=== PATIENT | female | born 1960 | race Caucasian/White ===

== ENCOUNTER → 2020-02-14 | Outpatient (CLI) | payer BC | END | disposition home or self-care (01) | LOC: LABWHC1 10:22 | PROVIDERS: ATTEND Family Medicine | DX: Z20.828 Contact with and (suspected) exposure to other viral communicable diseases (principal) | CPT/HCPCS: U0003; C9803 ==

== ENCOUNTER → 2021-03-10 | Outpatient (CLI) | payer BC ==
--- NOTE | 2021-03-10 11:08 | US ---
EXAMINATION TYPE: US venous doppler duplex LE LT DATE OF EXAM: 03/10/2021 10:36 AM COMPARISON: NONE CLINICAL HISTORY: Left M79.605 Pain of left leg. Left leg pain after fall from ladder 3 days ago SIDE PERFORMED: Left TECHNIQUE: The lower extremity deep venous system is examined utilizing real time linear array sonog brian with graded compression, doppler sonography and color-flow sonography. VESSELS IMAGED: Common Femoral Vein Deep Femoral Vein Greater Saphenous Vein * Femoral Vein Popliteal Vein Small Saphenous Vein * Proximal Calf Veins (* superficial vessels) Left Leg: Appears negative for DVT IMPRESSION: 1. Left lower extremity ultrasound negative for deep venous thrombosis.
== END | disposition home or self-care (01) ==
LOC: RADUSWWP 10:16
PROVIDERS: ATTEND Family Medicine
DX: M79.605 Pain in left leg (principal)

== ENCOUNTER → 2023-12-08 | Outpatient (CLI) | payer MEDICARE, BC ==
--- NOTE | 2023-12-11 15:06 | MM ---
Reason for Exam: Screening (asymptomatic). Last mammogram was performed 6 year(s) and 8 month(s) ago. Patient History: Menarche at age 10. First Full-Term at age 37. Late child-bearing (after 30). Postmenopausal. Patient has history of breast feeding. Patient used Hormonal Contraceptives for 10 years. Sister had breast cancer, age 58. Risk Values: Rena 5 year model risk: 3.3%. NCI Lifetime model risk: 12.3%. Prior Study Comparison: 10/06/2008 Bilateral Screening Mammogram, [facility]. 12/11/2009 Bilateral Screening Mammogram, [facility]. 04/21/2017 Bilateral Screening Mammogram, [facility]. Tissue Density: The breasts are heterogeneously dense, which may obscure small masses. Findings: Analyzed By CAD. Right breast: There is no suspicious group of microcalcifications or new suspicious mass. Left breast: There is no suspicious group of microcalcifications or new suspicious mass. Overall Assessment: Negative, BI-RAD 1 Management: Screening Mammogram of both breasts in [address] [facility] will attempt to contact patient to return for supplemental views and ultrasound if indicated. Patient should continue monthly self-breast exams. A clinical breast exam by your physician is recommended on an annual basis. This exam should not preclude additional follow-up of suspicious palpable abnormalities. Note on Rena scores and lifetime risk: 1. A Rena score greater than 3% is considered moderate risk. If this is the case, consider specialist referral to assess eligibility for a risk reducing agent. 2. If overall lifetime risk for the development of breast cancer is 20% or higher, the patient may qualify for future screening with alternating mammogram and breast MRI. Electronically signed and approved by: Rajan Jay DO
== END | disposition home or self-care (01) ==
LOC: RADMAMWWP 08:53
PROVIDERS: ATTEND Family Medicine
DX: Z12.31 Encounter for screening mammogram for malignant neoplasm of breast (principal); Z78.0 Asymptomatic menopausal state; Z80.3 Family history of malignant neoplasm of breast
CPT/HCPCS: 77063; 77067

== ENCOUNTER → 2024-12-11 | Outpatient (CLI) | payer MEDICARE ==
--- NOTE | 2024-12-11 10:51 | MR ---
EXAMINATION TYPE: MR brain wo con DATE OF EXAM: 12/11/2024 9:57 AM COMPARISON: None. CLINICAL INDICATION: Female, 64 years old with history of R41.3 memory loss, Memory loss TECHNIQUE: Multiplanar, multisequence images of the brain and brainstem were acquired without IV con trast. Diffusion weighted imaging is performed. FINDINGS: No evidence for acute infarction, hemorrhage, mass, mass effect, midline shift, herniation, effacemen t of basal cisterns, or extra-axial fluid collection. Mild to moderate volume loss overlying the bilateral cerebral convexities. No hydrocephalus. Major intracranial flow voids are intact. Hypoplastic left vertebral artery. Small caliber to the bas ilar artery. There appears to be persistent origin bilateral posterior cerebral arteries. T2/FLAIR weighted sequences show mild to moderate scattered bright signal foci in the subcortical and deep white matter regions of both cerebral hemispheres. Midline structures demonstrate normal morphology. The craniocervical junction is normal. There is mild mucosal thickening ethmoid air cells. Globes are intact. IMPRESSION: 1. No acute intracranial abnormality seen. 2. Mild age-related cerebral atrophy. 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 3. 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 Correlate for any potential hand hide stretcher loan symptoms of vertebrobasilar insufficiency. [facility], , 12/11/2024 10:48 AM
== END | disposition home or self-care (01) ==
LOC: RADMRIMAIN 11-01 11:27
PROVIDERS: ATTEND Psychiatry & Neurology Neurology
DX: I67.82 Cerebral ischemia (principal); G31.1 Senile degeneration of brain, not elsewhere classified; R41.3 Other amnesia
CPT/HCPCS: 70551

== ENCOUNTER → 2025-01-17 | Outpatient (CLI) | payer MEDICARE ==
--- NOTE | 2025-01-17 17:50 | MM ---
Reason for Exam: Screening (asymptomatic). Last mammogram was performed 1 year(s) and 1 month(s) ago. Patient History: Menarche at age 10. First Full-Term at age 37. Late child-bearing (after 30). Postmenopausal. Patient has history of breast feeding. Patient used Hormonal Contraceptives for 10 years. Sister had breast cancer, age 58. Risk Values: Rena 5 year model risk: 3.4%. NCI Lifetime model risk: 11.4%. Prior Study Comparison: 12/11/2009 Bilateral Screening Mammogram, [facility]. 04/21/2017 Bilateral Screening Mammogram, [facility]. 12/08/2023 Bilateral MG 3D screening mammo w/cad, [facility]. Tissue Density: There are scattered areas of fibroglandular density. Findings: Analyzed By CAD. Unchanged bilateral areas of asymmetric density. There is no suspicious group of microcalcifications or new suspicious mass in either breast. Overall Assessment: Benign, BI-RAD 2 Management: Screening Mammogram of both breasts in 1 year. See note below in regards to the patient's increased 5 year Rena score. Patient should continue monthly self-breast exams. A clinical breast exam by your physician is recommended on an annual basis. This exam should not preclude additional follow-up of suspicious palpable abnormalities. Note on Rena scores and lifetime risk: 1. A Rena score greater than 3% is considered moderate risk. If this is the case, consider specialist referral to assess eligibility for a risk reducing agent. 2. If overall lifetime risk for the development of breast cancer is 20% or higher, the patient may qualify for future screening with alternating mammogram and breast MRI. [facility], , 01/17/2025 5:47 PM. Electronically signed and approved by: Geoffrey Ca M.D. Radiologist
== END | disposition home or self-care (01) ==
LOC: RADMAMWWP 09:32
PROVIDERS: ATTEND Family Medicine
DX: Z12.31 Encounter for screening mammogram for malignant neoplasm of breast (principal); R92.323 Mammographic fibroglandular density, bilateral breasts; Z78.0 Asymptomatic menopausal state; Z92.0 Personal history of contraception; Z80.3 Family history of malignant neoplasm of breast
CPT/HCPCS: 77063; 77067

== ENCOUNTER 2025-02-26 11:33 | Inpatient (IN) | payer MEDICARE ==
--- NOTE | 2025-02-26 11:55 | ED ---
Recheck HPI - General Source: patient, RN notes reviewed Mode of arrival: ambulatory Limitations: no limitations - History of Present Illness MD Complaint: abnormal lab <Renee Floyd - Last Filed: 02/26/25 16:48> <Allie Polanco - Last Filed: 02/27/25 20:46> - General Chief Complaint: Recheck/Abnormal Lab/Rx Stated Complaint: Low iron Time Seen by Provider: 02/26/25 11:39 - History of Present Illness Initial Comments: This is a 65-year-old female who presents to the emergency department for low hemoglobin. Patient had been experiencing shortness of breath and weakness over the last month. She had initially thought this was related to her asthma. She had blood work done yesterday revealing a hemoglobin level of less than 7 and she was advised by her PCP to come to the emergency department for a transfusion. Denies any history of low hemoglobin in the past or history of requiring blood transfusions. Not taking any blood thinners. She does report having some dark stools yesterday, but advised that this has otherwise not been a regular recurrence. Denies any blood in her stool or elsewhere. Denies any abdominal pain, nausea, or vomiting. (Renee Floyd) - Related Data Home Medications Medication Instructions Recorded Confirmed Albuterol Sulfate [Albuterol 2 puff INHALATION RT-Q6H PRN 02/26/25 02/26/25 Sulfate Hfa] Budesonide [Pulmicort Flexhaler] 1 puff INHALATION RT-BID 02/26/25 02/26/25 Ginkgo Biloba(Unknown Dose) 1 tab PO DAILY 02/26/25 02/26/25 Allergies Allergy/AdvReac Type Severity Reaction Status Date / Time No Known Allergies Allergy Verified 02/26/25 15:03 Review of Systems ROS Other: All systems not noted in ROS Statement are negative. <Renee Floyd - Last Filed: 02/26/25 16:48> ROS Other: All systems not noted in ROS Statement are negative. <Allie Polanco - Last Filed: 02/27/25 20:46> ROS Statement: Those systems with pertinent positive or pertinent negative responses have been documented in the HPI. Past Medical History Past Medical History: Asthma History of Any Multi-Drug Resistant Organisms: None Reported Past Surgical History: No Surgical Hx Reported Past Psychological History: No Psychological Hx Reported Smoking Status: Never smoker Past Alcohol Use History: Occasional Past Drug Use History: None Reported <Renee Floyd - Last Filed: 02/26/25 16:48> General Exam Limitations: no limitations General appearance: alert, in no apparent distress Head exam: Present: atraumatic, normocephalic, normal inspection Respiratory exam: Present: normal lung sounds bilaterally. Absent: respiratory distress, wheezes, rales, rhonchi, stridor Cardiovascular Exam: Present: regular rate, normal rhythm Neurological exam: Present: alert, oriented X3, CN II-XII intact Psychiatric exam: Present: normal affect, normal mood Skin exam: Present: warm, dry, intact, normal color. Absent: rash <Renee Floyd - Last Filed: 02/26/25 16:48> Course Vital Signs 02/26/25 02/26/25 02/26/25 11:35 12:03 13:20 Temperature 98 F Pulse Rate 85 69 Respiratory 20 18 18 Rate Blood Pressure 134/83 116/65 O2 Sat by Pulse 99 99 Oximetry 02/26/25 02/26/25 02/26/25 13:25 13:42 14:02 Temperature 98.7 F 98.3 F 98.5 F Pulse Rate 81 58 L 76 Respiratory 16 16 16 Rate Blood Pressure 116/65 114/65 108/62 O2 Sat by Pulse 99 99 Oximetry 02/26/25 02/26/25 14:42 15:23 Temperature 98.5 F 98.2 F Pulse Rate 59 L 78 Respiratory 18 19 Rate Blood Pressure 105/62 126/74 O2 Sat by Pulse 97 100 Oximetry Medical Decision Making - Lab Data Result diagrams: 02/26/25 12:03 02/26/25 12:03 <Renee Floyd - Last Filed: 02/26/25 16:48> - Lab Data Result diagrams: 02/27/25 03:39 02/26/25 12:03 <Allie Polanco - Last Filed: 02/27/25 20:46> - Medical Decision Making This is a 65 year old female who presents to the emergency department for low h emoglobin. Was pt. sent in by a medical professional or institution? @ -No Did you speak to anyone other than the patient for history? @ -No Did you review nursing and triage notes? @ -Yes, and I agree, it is accurate with regards to the patient's symptoms. Were old charts reviewed? @ -No Differential Diagnosis? @ -Iron deficiency anemia, medication induced, coagulopathy, bleeding, sepsis, this is not meant to be an all-inclusive list. EKG interpreted by me (3pts min.)? @ -EKG interpreted by me demonstrating the following: Sinus rhythm. Ventricular rate 70 bpm, [place] interval 142 ms, QRS duration 101 ms, QTc 417 ms. X-rays interpreted by me (1pt min.)? @ -Not obtained CT interpreted by me (1pt min.)? @ -Not obtained U/S interpreted by me (1pt. min.)? @ -Not obtained What testing was considered but not performed? (CT, X-rays, U/S, labs)? Why? @ -None What meds were considered but not given? Why? @ -None Did you discuss the management of the patient with other professionals? @ -Yes, Dr. Bautista, who accepts the patient for admission. Did you reconcile home meds? @ -Yes Was smoking cessation discussed for >3mins.? @ -No Was critical care preformed (if so, how long)? @ -No Were there social determinants of health that impacted care today? How? (Homelessness, low income, unemployed, alcoholism, drug addiction, transportation, low edu. Level, literacy, decrease access to med. care, custodial, rehab)? @ -No Was there de-escalation of care discussed even if they declined? (Discuss DNR or withdrawal of care, Hospice)? @ -No What co-morbidities impacted this encounter? (DM, HTN, Smoking, COPD, CAD, Cancer, CVA, Hep., AIDS, mental health diagnosis, sleep apnea, morbid obesity)? @ -Asthma Was patient admitted / discharged? @ -Admitted. Lab work demonstrates anemia with a hemoglobin of 6.9. RBCs, MCV, and MCH are also low, suggesting that she is likely iron deficient. She did have some dark stools yesterday that she advised have since resolved. She has otherwise not had any GI symptoms. 1 unit of PRBCs ordered for transfusion. Given that this is a new problem for the patient and the cause of the anemia is not clear, she was admitted to medicine for further evaluation and management. Iron profile, vitamin B12, and folate ordered with results pending at the time of admission. Consult placed for GI regarding symptomatic anemia. Case discussed with ED attending Dr. Polanco. Undiagnosed new problem with uncertain prognosis? @ -None Drug Therapy requiring intensive monitoring for toxicity (Heparin, Nitro, Insulin, Cardizem)? @ -None Were any procedures done? @ -None Diagnosis/symptom? @ -Symptomatic anemia, anemia of unknown origin Acute, or Chronic, or Acute on Chronic? @ -Acute Uncomplicated (without systemic symptoms) or Complicated (systemic symptoms)? @ -Complicated Side effects of treatment? @ -None Exacerbation, Progression, or Severe Exacerbation] @ -Not applicable Poses a threat to life or bodily function? @ -Yes, if the hemoglobin continues to decrease it can become life-threatening (Renee Floyd) - Lab Data Lab Results 02/26/25 02/26/25 02/26/25 Range/Units 11:56 11:58 12:03 WBC 4.78 (4.50-10.00) 10*3/uL RBC 3.51 L (4.10-5.20) 10*6/uL Hgb 6.9 L* (12.0-15.0) g/dL Hct 23.9 L (37.2-46.3) % MCV 68.1 L (80.0-97.0) fL MCH 19.7 L (27.0-32.0) pg MCHC 28.9 L (32.0-37.0) g/dL Plt Count 338 (140-440) 10*3/uL MPV 9.3 L (9.5-12.2) fL Immature Gran % (Auto) 0.4 % Neutrophils % 62.6 % Lymphocytes % 26.8 % Monocytes % 8.4 % Eosinophils % 0.8 % Basophils % 1.0 % Immature Gran # 0.02 (0.00-0.04) 10*3/uL Neutrophils # 2.99 (1.80-7.70) 10*3/uL Lymphocytes # 1.28 (0.90-5.00) 10*3/uL Monocytes # 0.40 (0.20-1.00) 10*3/uL Eosinophils # 0.04 (0.04-0.35) 10*3/uL Basophils # 0.05 (0.00-0.10) 10*3/uL PT (10.0-12.5) sec INR (<1.2) APTT (22.0-30.0) sec Sodium (137-145) mmol/L Potassium (3.5-5.1) mmol/L Chloride (98-107) mmol/L Carbon Dioxide (22-30) mmol/L Anion Gap mmol/L BUN (7-17) mg/dL Creatinine (0.52-1.04) mg/dL Est GFR (CKD-EPI)AfAm (>60 ml/min/1.73 sqM) Est GFR (CKD-EPI)NonAf (>60 ml/min/1.73 sqM) Glucose (74-99) mg/dL Calcium (8.4-10.2) mg/dL Magnesium (1.6-2.3) mg/dL Iron (50-170) UG/DL TIBC (228-460) UG/DL % Saturation (12.00-45.00) Transferrin (204.0-354.0) mg/dL Ferritin (10.0-291.0) ng/mL Total Bilirubin (0.2-1.3) mg/dL AST (14-36) U/L ALT (4-34) U/L Alkaline Phosphatase (38-126) U/L Total Protein (6.3-8.2) g/dL Albumin (3.5-5.0) g/dL Vitamin B12 (200.0-944.0) pg/mL Folate (4.40-31.00) ng/mL Blood Type B Positive Blood Type Confirm B Positive Blood Type Recheck No Previous Record Bld Type Recheck Status CABO Indicated Antibody Screen NEGATIVE Crossmatch See Detail Spec Expiration Date 03/01/2025 - 235702/26/25 02/26/25 02/26/25 Range/Units 12:03 12:03 12:03 WBC (4.50-10.00) 10*3/uL RBC (4.10-5.20) 10*6/uL Hgb (12.0-15.0) g/dL Hct (37.2-46.3) % MCV (80.0-97.0) fL MCH (27.0-32.0) pg MCHC (32.0-37.0) g/dL Plt Count (140-440) 10*3/uL MPV (9.5-12.2) fL Immature Gran % (Auto) % Neutrophils % % Lymphocytes % % Monocytes % % Eosinophils % % Basophils % % Immature Gran # (0.00-0.04) 10*3/uL Neutrophils # (1.80-7.70) 10*3/uL Lymphocytes # (0.90-5.00) 10*3/uL Monocytes # (0.20-1.00) 10*3/uL Eosinophils # (0.04-0.35) 10*3/uL Basophils # (0.00-0.10) 10*3/uL PT 10.6 (10.0-12.5) sec INR 0.9 (<1.2) APTT 19.9 L (22.0-30.0) sec Sodium 140 (137-145) mmol/L Potassium 4.3 (3.5-5.1) mmol/L Chloride 109 H (98-107) mmol/L Carbon Dioxide 22 (22-30) mmol/L Anion Gap 9 mmol/L BUN 18 H (7-17) mg/dL Creatinine 0.54 (0.52-1.04) mg/dL Est GFR (CKD-EPI)AfAm >90 (>60 ml/min/1.73 sqM) Est GFR (CKD-EPI)NonAf >90 (>60 ml/min/1.73 sqM) Glucose 91 (74-99) mg/dL Calcium 9.2 (8.4-10.2) mg/dL Magnesium 2.0 (1.6-2.3) mg/dL Iron 14 L (50-170) UG/DL TIBC 577 H (228-460) UG/DL % Saturation 2.43 L (12.00-45.00) Transferrin 412.0 H (204.0-354.0) mg/dL Ferritin (10.0-291.0) ng/mL Total Bilirubin 0.7 (0.2-1.3) mg/dL AST 26 (14-36) U/L ALT 21 (4-34) U/L Alkaline Phosphatase 77 (38-126) U/L Total Protein 6.4 (6.3-8.2) g/dL Albumin 4.2 (3.5-5.0) g/dL Vitamin B12 429.0 (200.0-944.0) pg/mL Folate 18.60 (4.40-31.00) ng/mL Blood Type Blood Type Confirm Blood Type Recheck Bld Type Recheck Status Antibody Screen Crossmatch Spec Expiration Date 02/26/25 Range/Units 12:03 WBC (4.50-10.00) 10*3/uL RBC (4.10-5.20) 10*6/uL Hgb (12.0-15.0) g/dL Hct (37.2-46.3) % MCV (80.0-97.0) fL MCH (27.0-32.0) pg MCHC (32.0-37.0) g/dL Plt Count (140-440) 10*3/uL MPV (9.5-12.2) fL Immature Gran % (Auto) % Neutrophils % % Lymphocytes % % Monocytes % % Eosinophils % % Basophils % % Immature Gran # (0.00-0.04) 10*3/uL Neutrophils # (1.80-7.70) 10*3/uL Lymphocytes # (0.90-5.00) 10*3/uL Monocytes # (0.20-1.00) 10*3/uL Eosinophils # (0.04-0.35) 10*3/uL Basophils # (0.00-0.10) 10*3/uL PT (10.0-12.5) sec INR (<1.2) APTT (22.0-30.0) sec Sodium (137-145) mmol/L Potassium (3.5-5.1) mmol/L Chloride (98-107) mmol/L Carbon Dioxide (22-30) mmol/L Anion Gap mmol/L BUN (7-17) mg/dL Creatinine (0.52-1.04) mg/dL Est GFR (CKD-EPI)AfAm (>60 ml/min/1.73 sqM) Est GFR (CKD-EPI)NonAf (>60 ml/min/1.73 sqM) Glucose (74-99) mg/dL Calcium (8.4-10.2) mg/dL Magnesium (1.6-2.3) mg/dL Iron (50-170) UG/DL TIBC (228-460) UG/DL % Saturation (12.00-45.00) Transferrin (204.0-354.0) mg/dL Ferritin 4.9 L (10.0-291.0) ng/mL Total Bilirubin (0.2-1.3) mg/dL AST (14-36) U/L ALT (4-34) U/L Alkaline Phosphatase (38-126) U/L Total Protein (6.3-8.2) g/dL Albumin (3.5-5.0) g/dL Vitamin B12 (200.0-944.0) pg/mL Folate (4.40-31.00) ng/mL Blood Type Blood Type Confirm Blood Type Recheck Bld Type Recheck Status Antibody Screen Crossmatch Spec Expiration Date Disposition <Renee Floyd - Last Filed: 02/26/25 16:48> <Allei Polanco - Last Filed: 02/27/25 20:46> Clinical Impression: Symptomatic anemia, Anemia of unknown etiology Disposition: ADMITTED IP TO THIS HOSP
[2025-02-26 12:14] LABS: Basophils # (A) 0.05 10*3/uL (0.00-0.10); Basophils % (A) 1.0 %; Eosinophils # (A) 0.04 10*3/uL (0.04-0.35); Eosinophils % (A) 0.8 %; HCT 23.9 % (37.2-46.3); Lymphocytes # (A) 1.28 10*3/uL (0.90-5.00); Lymphocytes % (A) 26.8 %; MCH 19.7 pg (27.0-32.0); MCHC 28.9 g/dL (32.0-37.0); MCV 68.1 fL (80.0-97.0); Monocytes # (A) 0.40 10*3/uL (0.20-1.00); Monocytes % (A) 8.4 %; Neutrophils # (A) 2.99 10*3/uL (1.80-7.70); Neutrophils % (A) 62.6 %; Platelet Count 338 10*3/uL (140-440); RBC 3.51 10*6/uL (4.10-5.20); RDW 19.6 % (11.5-14.5); WBC 4.78 10*3/uL (4.50-10.00)
[2025-02-26 12:23] LABS: HGB 6.9 g/dL (12.0-15.0)
[2025-02-26 12:27] LABS: ALT 21 U/L (4-34); AST 26 U/L (14-36); African American GFR (CKD) >90 (>60 ml/min/1.73 sqM); Albumin 4.2 g/dL (3.5-5.0); Alkaline Phosphatase 77 U/L (38-126); Anion Gap 9 mmol/L; Blood Urea Nitrogen 18 mg/dL (7-17); Calcium 9.2 mg/dL (8.4-10.2); Carbon Dioxide 22 mmol/L (22-30); Chloride 109 mmol/L (98-107); Glucose 91 mg/dL (74-99); Magnesium 2.0 mg/dL (1.6-2.3); Non-African American GFR(CKD) >90 (>60 ml/min/1.73 sqM); Potassium 4.3 mmol/L (3.5-5.1); Sodium 140 mmol/L (137-145); Total Protein 6.4 g/dL (6.3-8.2)
[2025-02-26 12:37] LABS: INR 0.9 (<1.2); Prothrombin Time 10.6 sec (10.0-12.5)
[2025-02-26 12:39] LABS: Partial Thromboplastin Time 19.9 sec (22.0-30.0)
[2025-02-26] MEDS ORDERED: NALOXONE 0.4 MG/ML 1 ML VIAL IV PRN (12:43)
[2025-02-26] MEDS ORDERED: HYDROcodone/APAP 5-325MG 1 EACH TAB PO PRN (12:43)
[2025-02-26] MEDS ORDERED: ACETAMINOPHEN TAB 325 MG TAB PO PRN (12:43)
[2025-02-26] MEDS ORDERED: MORPHINE SULFATE 4 MG/ML SYRINGE IV PRN (12:43)
[2025-02-26] MEDS ORDERED: ONDANSETRON 4 MG/2 ML VIAL IVP PRN (12:43)
[2025-02-26] MEDS: PANTOPRAZOLE 40 MG/10 ML VIAL IVP STA (12:48)
[2025-02-26] MEDS ORDERED: ALBUTEROL NEBULIZED 2.5 MG/3 ML INHALATION PRN (15:36)
[2025-02-26 15:44] LABS: Bacteria,Urine Rare /hpf; Bilirubin,Urine Negative (Negative); Blood,Urine Negative (Negative); Color,Urine Colorless; Glucose,Urine (UA) Negative (Negative); Ketones,Urine Trace (Negative); Leukocyte Esterase,Urine Moderate (Negative); Mucus,Urine Rare /hpf; Nitrite,Urine Negative (Negative); PH, Urine 6.5 (5.0-8.0); Protein,Urine Negative (Negative); RBC,Urine 1 /hpf (0-5); Specific Gravity,Urine 1.017 (1.001-1.035); Squamous Epithelial Cell,Urine <1 /hpf (0-4); Urobilinogen,Urine <2.0 mg/dL (<2.0); WBC,Urine 7 /hpf (0-5)
--- NOTE | 2025-02-26 17:51 | HP ---
HISTORY AND PHYSICAL CHIEF COMPLAINT: Shortness of breath and anemia. HISTORY OF PRESENT ILLNESS: This 65-year-old woman with a past medical history of multiple medical problems, recently diagnosed of asthma because of increased shortness of breath. The patient had a blood work done, hemoglobin was less than 7 and the patient was taken to [place] for further evaluation and treatment. There is no history of fever, rigors, chills at this time. PAST MEDICAL HISTORY: History of asthma. Rest of the history and chart is also reviewed. MEDICATIONS: Pulmicort, dose and rest of medications reviewed. ALLERGIES: None. FAMILY HISTORY: No history of heart disease or strokes in the family. SOCIAL HISTORY: Occasional alcohol. REVIEW OF SYSTEMS: 14-point review of systems negative except as mentioned earlier. PHYSICAL EXAMINATION: VITAL SIGNS: Pulse is 63, blood pressure n, respirations 20. HEENT: Conjunctivae pale. Oral mucosa moist. CARDIOVASCULAR: S1, S2. RESPIRATIONS: Breath sounds diminished at the bases. ABDOMEN: Soft, nontender. LEGS: No edema. NERVOUS SYSTEM: Nonfocal. LABORATORY DATA: Hemoglobin 6.9, MCV 68.1. Rest of the labs are noted. ASSESSMENT: 1. Microcytic anemia, rule out gastrointestinal bleed. 2. History of recently diagnosed asthma. RECOMMENDATIONS AND DISCUSSION: This is a 65-year-old woman who presented with multiple complex medical issues. We will monitor the patient closely. Recommend to resume the home medications. Proton pump inhibitors. Gastroenterology consultation for possible endoscopies. The patient had a colonoscopy previously and had EGD. We will continue to monitor. Guarded prognosis. Further recommendations to follow. MMODL / IJN: [id number] / [facility]
[2025-02-26 19:21] LABS: Iron 14 UG/DL (50-170); Total Iron Binding Capacity 577 UG/DL (228-460); Vitamin B12 429.0 pg/mL (200.0-944.0)
[2025-02-26 19:57] LABS: Basophils # (A) 0.07 10*3/uL (0.00-0.10); Basophils % (A) 1.2 %; Eosinophils # (A) 0.06 10*3/uL (0.04-0.35); Eosinophils % (A) 1.1 %; HCT 23.9 % (37.2-46.3); HGB 7.0 g/dL (12.0-15.0); Lymphocytes # (A) 1.63 10*3/uL (0.90-5.00); Lymphocytes % (A) 28.8 %; MCH 20.5 pg (27.0-32.0); MCHC 29.3 g/dL (32.0-37.0); MCV 69.9 fL (80.0-97.0); Monocytes # (A) 0.49 10*3/uL (0.20-1.00); Monocytes % (A) 8.7 %; Neutrophils # (A) 3.39 10*3/uL (1.80-7.70); Neutrophils % (A) 60.0 %; Platelet Count 295 10*3/uL (140-440); RBC 3.42 10*6/uL (4.10-5.20); RDW 19.9 % (11.5-14.5); WBC 5.65 10*3/uL (4.50-10.00)
[2025-02-26] MEDS: FLUTICASONE 110 MCG INHALER INHALATION SCH (22:46)
[2025-02-27 08:43] LABS: Anisocytosis (M) 2+ (None Seen); Basophils # (A) 0.07 X 10*3/uL (0.00-0.10); Basophils % (A) 1.4 %; Eosinophils # (A) 0.11 X 10*3/uL (0.04-0.35); Eosinophils % (A) 2.2 %; HCT 24.5 % (37.2-46.3); HGB 6.8 g/dL (12.0-15.0); Hypochromasia (M) 2+ (None Seen); Immature Grans, Automated 0.40 %; Lymphocytes # (A) 1.82 X 10*3/uL (0.90-5.00); Lymphocytes % (A) 35.7 %; MCH 19.8 pg (27.0-32.0); MCHC 27.8 g/dL (32.0-37.0); MCV 71.4 FL (80.0-97.0); Microcytosis (M) 2+ (None Seen); Monocytes # (A) 0.50 X 10*3/uL (0.20-1.00); Monocytes % (A) 9.8 %; NRBC Per 100 WBC 0 X 10*3/uL (0.00-0.01); Neutrophils # (A) 2.58 X 10*3/uL (1.80-7.70); Neutrophils % (A) 50.5 %; Platelet Count 291 X 10*3/uL (140-440); RBC 3.43 X 10*6/uL (4.10-5.20); RDW 20.5 % (11.5-14.5); WBC 5.10 X 10*3/uL (4.50-10.00)
[2025-02-27] MEDS ORDERED: GINKGO BILOBA PO SCH (09:00)
[2025-02-27] MEDS: PANTOPRAZOLE 40 MG/10 ML VIAL IV SCH (09:33)
--- NOTE | 2025-02-27 17:11 | P.CONS ---
History of Present Illness - Reason for Consult Consult date: 02/27/25 Symptomatic anemia Requesting physician: Renee Floyd - Chief Complaint Shortness of breath, weakness - History of Present Illness 65-year-old female presented to the emergency department yesterday with low hemoglobin. She had been experiencing shortness of breath and weakness for the last months duration went to her PCP had some blood work done found out her hemoglobin was low and was sent to the emergency department for further evaluation. Patient was noted to have a hemoglobin of 6.9. She was transfused 1 unit of blood with a repeat level of 7.0 and repeat peak dropped to 6.8. She received a second unit of blood. Gastroenterology was consulted for symptomatic anemia.. No significant past medical history other than asthma. She denies any previous history of GI bleed. No previous need for transfusion. She denies any anticoagulation, no NSAID use. Denies any abdominal pain nausea or vomiting. No acid reflux. No previous history of upper endoscopy. Last colonoscopy was in [address] Jakob brar which was normal with recommendations for repeat in 10 years. Review of Systems REVIEW OF SYSTEMS: CARDIOPULMONARY: No chest pain. Positive shortness of breath. Gastrointestinal: No abdominal pain. No nausea or vomiting. No hematemesis, coffee-ground emesis. No rectal bleeding, or melena. GENITOURINARY: No dysuria or hematuria. MUSCULOSKELETAL: Reports normal range of motion., Joint pain. SKIN: No rashes. No jaundice. ENDOCRINE: No chills, fevers. No excessive weight gain or loss. No polydipsia or polyuria. PSYCHIATRIC: Unremarkable. NEUROLOGY: No change in mental status. Denies dizziness, headache. ENT: Vision unremarkable. CONSTITUTIONAL: No recent weight loss. No fever, chills, night sweats. Generalized weakness. Past Medical History Past Medical History: Asthma History of Any Multi-Drug Resistant Organisms: None Reported Past Surgical History: No Surgical Hx Reported Past Psychological History: No Psychological Hx Reported Smoking Status: Never smoker Past Alcohol Use History: Occasional Past Drug Use History: None Reported Medications and Allergies Home Medications Medication Instructions Recorded Confirmed Type Albuterol Sulfate [Albuterol 2 puff INHALATION RT-Q6H PRN 02/26/25 02/26/25 History Sulfate Hfa] Budesonide [Pulmicort Flexhaler] 1 puff INHALATION RT-BID 02/26/25 02/26/25 History Ginkgo Biloba(Unknown Dose) 1 tab PO DAILY 02/26/25 02/26/25 History Allergies Allergy/AdvReac Type Severity Reaction Status Date / Time No Known Allergies Allergy Verified 02/26/25 15:03 Physical Exam Vitals: Vital Signs Temp Pulse Pulse Resp BP BP Pulse Ox 02/27/25 11:11 97.4 F L 62 20 121/76 97 02/27/25 10:45 120/68 02/27/25 10:34 98.3 F 73 16 100 02/27/25 10:24 98.5 F 64 16 117/76 98 02/27/25 08:00 98.4 F 60 20 123/82 98 02/27/25 02:00 98.3 F 76 16 131/78 97 02/26/25 16:36 98.2 F 63 20 122/80 100 02/26/25 15:23 98.2 F 78 19 126/74 100 02/26/25 14:42 98.5 F 59 L 18 105/62 97 02/26/25 14:02 98.5 F 76 16 108/62 02/26/25 13:42 98.3 F 58 L 16 114/65 99 02/26/25 13:25 98.7 F 81 16 116/65 99 02/26/25 13:20 69 18 116/65 99 Intake and Output 02/26/25 02/27/25 02/27/25 22:59 06:59 14:59 Intake Total 282 590 0 Balance 282 590 0 Intake: Oral 590 Blood Product 282 0 Rc Pheresis 2 As3 Unit 282 [id number] Rc Pheresis As-3 Unit 0 [id number] Other: # Voids 2 1 Weight 90.718 kg General appearance: The patient is alert, oriented, appears in no acute distress. HET: Head is normocephalic and atraumatic. Conjunctiva pink. Sclera anicteric. Neck: Supple without lymphadenopathy. Trachea midline. Heart: Regular. Lungs: Equal expansion, normal respiratory effort. Abdomen: Soft, nontender, nondistended. Skin: No rashes. No jaundice. Extremities: Normal skin color and turgor. No pedal edema. Neurological: No focal deficits. Alert and oriented x3. Results CBC & Chem 7: 02/27/25 03:39 02/26/25 12:03 Labs: Abnormal Lab Results - Last 24 Hours (Table) 02/26/25 02/26/25 02/26/25 Range/Units 11:58 12:03 12:03 RBC (4.10-5.20) 10*6/uL Hgb (12.0-15.0) g/dL Hct (37.2-46.3) % MCV (80.0-97.0) fL MCH (27.0-32.0) pg MCHC (32.0-37.0) g/dL RDW (11.5-14.5) % MPV (9.5-12.2) fL Hypochromasia (manual) (None Seen) Anisocytosis (manual) (None Seen) Microcytosis (manual) (None Seen) Iron 14 L (50-170) UG/DL TIBC 577 H (228-460) UG/DL % Saturation 2.43 L (12.00-45.00) Transferrin 412.0 H (204.0-354.0) mg/dL Ferritin 4.9 L (10.0-291.0) ng/mL Urine Ketones (Negative) Ur Leukocyte Esterase (Negative) Urine WBC (0-5) /hpf Urine Bacteria (None) /hpf Urine Mucus (None) /hpf Crossmatch See Detail 02/26/25 02/26/25 02/27/25 Range/Units 15:28 19:48 03:39 RBC 3.42 L 3.43 L (4.10-5.20) 10*6/uL Hgb 7.0 L 6.8 A* (12.0-15.0) g/dL Hct 23.9 L 24.5 L (37.2-46.3) % MCV 69.9 L 71.4 L (80.0-97.0) fL MCH 20.5 L 19.8 L (27.0-32.0) pg MCHC 29.3 L 27.8 L (32.0-37.0) g/dL RDW 19.9 H 20.5 H (11.5-14.5) % MPV 9.1 L 9.4 L (9.5-12.2) fL Hypochromasia (manual) 2+ A (None Seen) Anisocytosis (manual) 2+ A (None Seen) Microcytosis (manual) 2+ A (None Seen) Iron (50-170) UG/DL TIBC (228-460) UG/DL % Saturation (12.00-45.00) Transferrin (204.0-354.0) mg/dL Ferritin (10.0-291.0) ng/mL Urine Ketones Trace H (Negative) Ur Leukocyte Esterase Moderate H (Negative) Urine WBC 7 H (0-5) /hpf Urine Bacteria Rare H (None) /hpf Urine Mucus Rare H (None) /hpf Crossmatch Assessment and Plan (1) Iron deficiency anemia Narrative/Plan: 65-year-old female presenting with symptomatic microcytic anemia, anemia workup including iron profile and ferritin completed with evidence of iron deficiency anemia. Unclear etiology as patient is not having any gross signs of GI bleed. However need to consider GI track as possible source of anemia. Will plan for upper endoscopy and colonoscopy. Current Visit: Yes Status: Acute Code(s): D50.9 - IRON DEFICIENCY ANEMIA, UNSPECIFIED SNOMED Code(s): 42467940 (2) Symptomatic anemia Current Visit: Yes Status: Acute Code(s): D64.9 - ANEMIA, UNSPECIFIED SNOMED Code(s): 033563497 Plan: 1. Continue symptomatic and supportive care 2. Daily CBC, transfuse for hemoglobin less than 7 3. Anemia profile ordered and reviewed 4. Parental iron ordered 5. Protonix 40 mg daily for GI prophylaxis 6. Will plan for upper endoscopy and colonoscopy tomorrow afternoon 7. Start bowel prep tomorrow morning Thank you for this consultation, we will continue to follow. Dr. Mike Lopes I agree with the dictator's note, documented as a scribe by Elsa Culver.
[2025-02-27] MEDS: LORazepam 1 MG/0.5 ML VIAL IV STA (17:37)
[2025-02-27] MEDS ORDERED: PEG 3350 (236 GM/BTL) + LYTES 4,000 ML BOTTLE PO ONE (18:00)
--- NOTE | 2025-02-27 19:46 | XR ---
EXAMINATION TYPE: XR chest 1V portable DATE OF EXAM: 02/27/2025 5:39 PM COMPARISON: None CLINICAL INDICATION: Female, 65 years old with history of chf; [facility] TECHNIQUE: XR chest 1V portable Frontal view of the chest. FINDINGS: Lungs/Pleura: There is no evidence of pleural effusion, focal consolidation, or pneumothorax. Pulmonary vascularity: Unremarkable. Heart/mediastinum: Cardiomediastinal silhouette is unremarkable. Musculoskeletal: No acute osseous pathology. IMPRESSION: No acute cardiopulmonary disease/process. [facility], , 02/27/2025 7:44 PM
--- NOTE | 2025-02-27 23:08 | CT ---
EXAMINATION TYPE: CT abdomen pelvis wo con DATE OF EXAM: 02/27/2025 5:57 PM COMPARISON: None. CLINICAL INDICATION: Female, 65 years old with history of gi bleed; gi bleed. did not want CTA TECHNIQUE: Axial CT abdomen pelvis wo con;Sagittal and coronal reformats were created on a separate workstation. Contrast used: mL of , (none if empty) Oral contrast used: without Oral Contrast (none if empty) CT DLP: 821.2 mGycm, Automated exposure control for dose reduction was used. FINDINGS: LOWER CHEST: Unremarkable ABDOMEN LIVER: Multiple cysts are noted within the liver the largest of these seen in the right hepatic lobe measuring up to at least 4.0 cm. Liver morphology is within normal limits. Few scattered subcentimete r hypoattenuated foci are noted to small to characterize. GALLBLADDER AND BILE DUCTS: The gallbladder is nondistended. Biliary sludge is suggested. No biliary ductal dilatation. PANCREAS: Unremarkable. SPLEEN: Unremarkable. ADRENAL GLANDS: Unremarkable. KIDNEYS AND URETERS: No evidence of hydronephrosis or obstructing renal calculus. Left renal cyst see n measuring up to 15 mm The ureters are unremarkable. PELVIS BLADDER: No evidence for wall thickening or mass given limitations of exam. REPRODUCTIVE: Unremarkable. ABDOMEN & PELVIS STOMACH AND BOWEL: Large hiatal hernia with partial intrathoracic stomach present. Small bowel is of normal caliber. No evidence of bowel obstruction. Please note that lack of intravenous contrast limit s evaluation for gastrointestinal hemorrhage. PERITONEUM/RETROPERITONEUM: No evidence of pneumoperitoneum or free fluid. VASCULATURE: No evidence of aortic aneurysm. MUSCULOSKELETAL: No acute osseous abnormalities LYMPH NODES: No gross evidence for lymphadenopathy. SOFT TISSUE/ABDOMINAL WALL: Small fat filled umbilical hernia. IMPRESSION: 1. No acute intra-abdominal/pelvic process. Please note lack of intravenous contrast limits evaluati on for gastrointestinal hemorrhage. 2. Large hiatal hernia. 3. Hepatic and renal cysts. [facility], , 02/27/2025 11:06 PM
--- NOTE | 2025-02-28 02:33 | PN ---
PROGRESS NOTE DATE OF SERVICE: 02/27/2025 SUBJECTIVE: This 65-year-old woman was admitted with symptomatic anemia, is being evaluated closely. Hemoglobin 6.8. I would recommend 1 more unit of transfusion. Gastroenterology consultation has been sought. There is no history of any fever, rigors or chills. PHYSICAL EXAMINATION: VITAL SIGNS: Pulse is 61, blood pressure 137/80, respirations 20. HEENT: Conjunctivae pale. NECK: No jugular venous distention. CARDIOVASCULAR: S1 and S2. RESPIRATIONS: Breath sounds diminished at the bases. ABDOMEN: Soft, nontender. LEGS: No edema. NERVOUS SYSTEM: Nonfocal. LABORATORY DATA: Reviewed. ASSESSMENT: 1. Microcytic anemia, rule out gastrointestinal bleed. 2. History of recently diagnosed asthma. RECOMMENDATION: Recommend to continue current management and symptomatic treatment. Recommend chest x- ray and CT scan of the abdomen to complete the workup. Repeat labs. Gastroenterology consultation, possible endoscopies. Further recommendations to follow. MMODL / IJN: [id number] /
[2025-02-28] MEDS: PEG 3350 (236 GM/BTL) + LYTES 4,000 ML BOTTLE PO ONE (05:21)
[2025-02-28] MEDS: SODIUM FERRIC GLUCONAT-SUCROSE 125 MG in SODIUM CHLORIDE 0.9% 100 ML IVPB SCH (09:20)
[2025-02-28 11:06] LABS: Basophils # (A) 0.06 X 10*3/uL (0.00-0.10); Basophils % (A) 1.4 %; Eosinophils # (A) 0.07 X 10*3/uL (0.04-0.35); Eosinophils % (A) 1.6 %; HCT 31.3 % (37.2-46.3); HGB 8.7 g/dL (12.0-15.0); Immature Grans, Automated 0.20 %; Lymphocytes # (A) 1.43 X 10*3/uL (0.90-5.00); Lymphocytes % (A) 33.4 %; MCH 20.1 pg (27.0-32.0); MCHC 27.8 g/dL (32.0-37.0); MCV 72.3 FL (80.0-97.0); Monocytes # (A) 0.42 X 10*3/uL (0.20-1.00); Monocytes % (A) 9.8 %; NRBC Per 100 WBC 0 X 10*3/uL (0.00-0.01); Neutrophils # (A) 2.29 X 10*3/uL (1.80-7.70); Neutrophils % (A) 53.6 %; Platelet Count 327 X 10*3/uL (140-440); RBC 4.33 X 10*6/uL (4.10-5.20); RDW 20.7 % (11.5-14.5); WBC 4.28 X 10*3/uL (4.50-10.00)
[2025-02-28 11:18] LABS: Anion Gap 11.10 mmol/L (4.00-12.00); BUN/Creat Ratio 16.00 Ratio (12.00-20.00); Blood Urea Nitrogen 11.2 mg/dL (9.0-27.0); Calcium 9.0 mg/dL (8.7-10.3); Carbon Dioxide 24.9 mmol/L (21.6-31.8); Chloride 104 mmol/L (96-109); Glucose 99 mg/dL (70-110); Potassium 4.3 mmol/L (3.5-5.5); Sodium 140 mmol/L (135-145)
[2025-02-28] MEDS: ZINC OXIDE PASTE (Z-GUARD) 1 APPLIC TOPICAL PRN (12:01)
[2025-02-28] MEDS ORDERED: fentaNYL (PF) 50 MCG/ML 2 ML AMP ONE (16:03)
[2025-02-28] MEDS ORDERED: LIDOCAINE 1% INJ 10MG/ML (20 ML MDV) ONE (16:03)
[2025-02-28] MEDS ORDERED: MIDAZOLAM 2 MG/2 ML VIAL ONE (16:03)
[2025-02-28] MEDS ORDERED: PROPOFOL 10 MG/ML 20 ML VIAL IV ONE (16:03)
[2025-02-28] MEDS: SODIUM CHLORIDE 0.9% 500 ML 500 ML IV ONE (16:31)
--- NOTE | 2025-02-28 16:36 | P.PCN ---
Date of Procedure: 02/28/25 Procedure(s) Performed: Brief history: Patient is a pleasant 65-year-old white female admitted to hospitalist for symptomatic anemia and hemoglobin of 6 requiring units of PRBC transfusion. Iron indicis were consistent with iron deficiency anemia. She is scheduled for upper endoscopy as well as colonoscopy to evaluate further. Procedure performed: Esophagogastroduodenoscopy with biopsy Colonoscopy with cold snare polypectomy. Preoperative diagnosis: Severe symptomatic iron deficiency anemia Anesthesia: MAC Procedure: After informed consent was obtained from the patient was brought into the endoscopy unit and IV sedation was administered by anesthesia under continuous monitoring. Initially upper endoscopy was done. The Olympus GF 160 video endoscope was inserted inserted into the mouth and esophagus intubated without any difficulty and was gradually advanced into the stomach and duodenum and carefully examined. The bulb and second part of the duodenum appeared normal. The scope was then withdrawn into the stomach adequately insufflated with air and upon careful examination the antrum had scattered erosions and biopsies were done from this area. Mucosa body, cardia and fundus appeared normal. The scope was then withdrawn into the esophagus. Moderate size hiatal hernia noted. There were multiple Ravi erosions noted at the diaphragmatic hiatus with no active bleeding. The GE junction was located at 34 cm to the incisors. It appeared regular with no erythema erosions or ulcerations. Rest of the esophagus appeared normal. Patient tolerated the procedure well. At this time the patient continued to remain sedation. Initial digital rectal examination was normal. Olympus CF 160 video colonoscope was then inserted into the rectum and gradually advanced to the cecum without any difficulty. Careful examination was performed as the scope was gradually being withdrawn. The prep was excellent. The cecum, ascending colon, transverse colon, descending colon, appeared normal. In the sigmoid colon there were 2 polyps measuring 5 mm in size removed by cold snare polypectomy. In the rectum there was a 5 mm polyp that was removed by cold snare polypectomy. Rest of the sigmoid colon and rectum appeared normal. Retroflexion was performed in the rectum and no lesions were noted. Patient tolerated the procedure well. Impression: 1. Upper endoscopy revealed antral erosive gastritis, moderate-sized hiatal hernia with multiple Ravi erosions 2. Colonoscopy revealed 5 mm x 2 distal sigmoid colon polyps and 5 mm rectal polyp status post cold snare polypectomy Recommendations: Findings of this examination were discussed with the patient. She was advised to follow-up with the biopsy results. Continue with Protonix 40 mg daily and iron supplements twice daily. Resume her regular diet. Monitor CBC periodically. Follow-up in the office in 2 to 3 weeks. She can be discharged home today or tomorrow.
[2025-02-28 17:38] VITALS: BP 140/82; PULSE 65; RESP 16; TEMP 97.8
== END 2025-02-28 18:06 | disposition home or self-care (01) | DRG 812 ==
LOC: EC 11:33 → 5NMEDONC 13:04
PROVIDERS: ADMIT Internal Medicine; ATTEND Internal Medicine
PROC: 30233N1 Transfusion of Nonautologous Red Blood Cells into Peripheral Vein, Percutaneous Approach (ICD-10-PCS; principal; 2025-02-26)
PROC: 0DB98ZX Excision of Duodenum, Via Natural or Artificial Opening Endoscopic, Diagnostic (ICD-10-PCS; 2025-02-28 16:00)
PROC: 0DB78ZX Excision of Stomach, Pylorus, Via Natural or Artificial Opening Endoscopic, Diagnostic (ICD-10-PCS; 2025-02-28 16:00)
PROC: 0DBN8ZX Excision of Sigmoid Colon, Via Natural or Artificial Opening Endoscopic, Diagnostic (ICD-10-PCS; 2025-02-28 16:00)
PROC: 0DBP8ZX Excision of Rectum, Via Natural or Artificial Opening Endoscopic, Diagnostic (ICD-10-PCS; 2025-02-28 16:00)
DX: D50.9 Iron deficiency anemia, unspecified (principal); J45.909 Unspecified asthma, uncomplicated; K25.9 Gastric ulcer, unspecified as acute or chronic, without hemorrhage or perforation; K29.60 Other gastritis without bleeding; K44.9 Diaphragmatic hernia without obstruction or gangrene; K62.1 Rectal polyp; K63.5 Polyp of colon; Z79.51 Long term (current) use of inhaled steroids; Z79.899 Other long term (current) drug therapy
CPT/HCPCS: 36415; 36430; 43239; 45385; 71045; 74176; 80048; 80053; 81001; 82607; 82728; 82746; 83540; 83550; 83735; 85025; 85610; 85730; 86850; 86900; 86901; 86920; 88305; 88341; 88342; 93005; 94640; 99285